=== PATIENT | male | born 1945 | race Caucasian/White ===

== ENCOUNTER → 2020-03-24 12:49 | Outpatient (CLI) | payer MEDICARE, OTHER | END | disposition home or self-care (01) | LOC: D.RT 02-13 13:00 → D.RAD 02-13 13:45 → D.LAB 02-13 14:30 → D.RT 12:49 | PROVIDERS: ATTEND Internal Medicine Pulmonary Disease | DX: J45.909 Unspecified asthma, uncomplicated (principal); Q79.1 Other congenital malformations of diaphragm; J98.11 Atelectasis ==